=== PATIENT | female | born 1990 | race Caucasian/White ===

== ENCOUNTER → 2017-11-04 | Outpatient (CLI) | payer OTHER ==
[~2017-11-04] MED LIST: GADOBUTROL 10 ML VIAL IVP ONE
== END ==
LOC: FIMAGING 19:00
PROVIDERS: ATTEND Physician Assistant
DX: Z08 Encounter for follow-up examination after completed treatment for malignant neoplasm (principal); Z85.841 Personal history of malignant neoplasm of brain
CPT/HCPCS: A9585